=== PATIENT | female | born 1970 | race Caucasian/White ===

== ENCOUNTER → 2016-05-07 | Outpatient (CLI) | payer BC ==
[~2016-05-07] MED LIST: GADOBUTROL 10 ML VIAL IVP ONE
--- NOTE | 2016-05-07 20:46 | MR ---
MRI of the Orbits (Before and Following Gadolinium) Clinical Indications: Sudden transient visual loss left eye, H46.9 Comparison: none Technique: The entire brain was imaged with sagittal T1-weighted axial inversion recovery and axial fast T2-weighted sequences. Detailed, fat-suppressed images of the orbits were acquired with a small field of view, before and after intravenous injection of 7.5 mL of Gadavist, using T1 and fast T2-we ighted axial and coronal projections. Findings: There is some focal field artifact related to dental hardware. There are scattered bilatera l T2 isovolumic foci of isovolumic hyperintensity involving the subcortical and deep white matter of both hemispheres. One small periventricular lesion is identified adjacent to the occipital horn of th e right lateral ventricle. None of the lesions are bright on the diffusion study, are associated with gadolinium enhancement or are hemorrhagic on the gradient sequence. No posterior fossa lesions are i dentified. There is normal flow void in the dominant left vertebral artery, in the basilar artery and both internal carotid arteries. The pituitary gland suprasellar cistern and optic chiasm look normal . There is no abnormal meningeal enhancement to suggest meningitis or meningeal carcinomatosis. Ventr icular size is normal. There is no midline shift or intracranial edema. Globes, extraocular muscles, orbital fat, lacrimal glands, and optic nerves are normal. There is a st atically no abnormal left optic nerve , optic chiasm or optic tract enhancement or edema. No masses a nd no fluid collections are found. Impression: 1. Nonspecific white matter disease, potentially indicative of a multifocal demyelinating process such as multiple sclerosis or infection such as Lyme disease. 2. Normal optic nerves and tracts. 3. No evidence for meningitis, mass or metastatic disease.
== END ==
LOC: FIMAGING 17:04
PROVIDERS: ATTEND Ophthalmology Retina Specialist
DX: H53.122 Transient visual loss, left eye (principal); G93.9 Disorder of brain, unspecified
CPT/HCPCS: A9585

== ENCOUNTER → 2016-05-12 | Outpatient (CLI) | payer BC ==
[~2016-05-12] MED LIST changes: -GADOBUTROL 10 ML VIAL IVP ONE; +LIDOCAINE 1% 30 ML SDV ONE; +NA BICARBONATE 50 MEQ/50 ML VIAL ONE
[2016-05-12 16:11] LABS: PROTEIN, CSF 72 mg/dL (12-60)
[2016-05-12 16:20] LABS: CSF COLOR PINK (COLORLESS)
[2016-05-12 16:21] LABS: CSF APPEARANCE HAZY (CLEAR); CSF SUPERNATANT SL. XANTHO (COLORLESS)
[2016-05-12 16:23] LABS: WBC, CSF 0 /mm3 (0-5)
[2016-05-12 16:24] LABS: CSF APPEARANCE CLEAR (CLEAR); CSF COLOR COLORLESS (COLORLESS); CSF SUPERNATANT COLORLESS (COLORLESS); WBC, CSF 0 /mm3 (0-5)
--- NOTE | 2016-05-12 16:32 | DX ---
Fluoroscopically-Guided Lumbar Puncture May 12, 2016 Indication: 45-year-old woman with vision loss who is being evaluated for multiple sclerosis. Crosscutting Measure #226: Current tobacco user: No. Informed consent was given, which included the risk of spinal headache, infection, aseptic meningitis , and bleeding. The patient agreed to proceed. Fluoroscopy time: 0.5 seconds. Cumulative dose: 3.5 mGy. Technique: The right L4-L5 interlaminar space was identified with preprocedural fluoroscopy and the skin was marked. The skin was sterilely prepped and draped. The skin and deep soft tissues were num bed with 1% lidocaine. Under direct fluoroscopy, a 22-gauge Cristal needle was introduced into the CSF space. 8 mL of clear fluid were obtained and sent to the Laboratory in four aliquots. The patie nt tolerated the procedure well and was returned to the [facility]rera of origin, without complication. Impression: 1. Successful diagnostic lumbar puncture. 2. 8 mL of cerebrospinal fluid submitted to the laboratory.
[2016-05-14 09:36] LABS: ALBUMIN CSF 12.8 mg/dL (<=27.0); CSF IGG INDEX 0.59 (<=0.85); IGG CSF 1.6 mg/dL (<=8.1); IGG/ALBUMIN CSF 0.13 (<=0.21); IGG/ALBUMIN SERUM 0.22 (<=0.40); SYNTHESIS RATE 0.18 mg/24 h (<=12)
== END ==
LOC: FIMAGING 12:45
PROVIDERS: ATTEND Psychiatry & Neurology Neurology
PROC: 009U3ZX Drainage of Spinal Canal, Percutaneous Approach, Diagnostic (ICD-10-PCS; principal; 2016-05-12)
DX: H46.12 Retrobulbar neuritis, left eye (principal); G37.9 Demyelinating disease of central nervous system, unspecified
CPT/HCPCS: 82784-90; 83916-90

== ENCOUNTER → 2016-07-07 | Outpatient (CLI) | payer BC | LOC: FIMAGING 15:46 | DX: Z12.31 Encounter for screening mammogram for malignant neoplasm of breast (principal); Z80.3 Family history of malignant neoplasm of breast | CPT/HCPCS: G0202 ==

== ENCOUNTER → 2016-11-16 | Outpatient (CLI) | payer BC | LOC: FIMAGING 08:31 | PROVIDERS: ATTEND Psychiatry & Neurology Neurology | DX: G37.9 Demyelinating disease of central nervous system, unspecified (principal); R94.02 Abnormal brain scan ==

== ENCOUNTER → 2018-07-15 | Outpatient (CLI) | payer BC | LOC: FIMAGING 13:03 | PROVIDERS: ATTEND Obstetrics & Gynecology | DX: Z12.31 Encounter for screening mammogram for malignant neoplasm of breast (principal); Z80.3 Family history of malignant neoplasm of breast ==